=== PATIENT | male | born 1990 | race Caucasian/White ===

== ENCOUNTER 2024-05-14 14:56 | Emergency (ER) | payer OTHER ==
[~2024-05-14] VITALS: Ht 165.1 cm; Wt 93.4 kg
[2024-05-14 15:10] VITALS: BP 138/91; PULSE 67; RESP 15; TEMP 98.8; O2SAT 98
[2024-05-14] MEDS ORDERED: ACET-8905 PO (16:38)
[2024-05-14] MEDS ORDERED: IBUP-2213 PO (16:38)
== END 2024-05-14 16:56 | disposition home or self-care (01) ==
LOC: MED 14:56
DX: S62.310A Displaced fracture of base of second metacarpal bone, right hand, initial encounter for closed fracture (principal); F12.90 Cannabis use, unspecified, uncomplicated; Z79.899 Other long term (current) drug therapy; Z98.890 Other specified postprocedural states; X58.XXXA Exposure to other specified factors, initial encounter; Y93.89 Activity, other specified; Y92.89 Other specified places as the place of occurrence of the external cause; Y99.8 Other external cause status
CPT/HCPCS: 73130; 99283